=== PATIENT | male | born 1975 | race Two or more races ===

== ENCOUNTER 2017-10-01 11:27 | Inpatient (IN) | payer OTHER ==
[2017-10-01 12:12] VITALS: BMI 20.3
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
[2017-10-01] MEDS ORDERED: guaiFENesin/D-METHORPHAN HB 10 ML UNIT-DOSE CUPS PO PRN (14:29)
[2017-10-01] MEDS ORDERED: MAGNESIUM HYDROX 2400MG/30ML ORAL SUSPENSION 30 ML CUP PO PRN (14:29)
[2017-10-01] MEDS ORDERED: IBUPROFEN 400 MG TABLET (FP) PO PRN (14:29)
[2017-10-01] MEDS ORDERED: MAGNESIUM CITRATE 300 ML BOTTLE PO PRN (14:29)
[2017-10-01] MEDS ORDERED: ACETAMINOPHEN 325 MG TABLET (FP) PO PRN (14:29)
[2017-10-01] MEDS ORDERED: NICOTINE POLACRILEX 2 MG GUM BUC PRN (14:29)
[2017-10-01] MEDS ORDERED: P-EPHED 60MG/TRIPROLIDI 2.5MG TABLET PO PRN (14:29)
[2017-10-01] MEDS ORDERED: MENTHOL/PHENOL 1 EACH UD MM PRN (14:29)
[2017-10-01] MEDS ORDERED: LOPERAMIDE HCL 2 MG CAPSULE PO PRN (14:29)
[2017-10-01] MEDS ORDERED: MAG HYDROX/AL HYDROX/SIMETH 30 ML UNIT-DOSE CUP PO PRN (14:29)
[2017-10-01] MEDS ORDERED: hydrOXYzine PAMOATE 50 MG CAPSULE (FP) PO PRN (14:29)
[2017-10-01] MEDS ORDERED: METHADONE HCL 10 MG TABLET (FOR DETOX USE ONLY) PO ONE ×2 (14:58→23:00)
[2017-10-01] MEDS: SULFAMETHOXAZOLE/TRIMETHOPRIM 800MG/160MG D.S. TABLET PO SCH ×2 (15:48→22:06)
[2017-10-01] MEDS: diazePAM 5 MG TABLET PO PRN ×2 (15:48→20:09)
[2017-10-01] MEDS: BACITRACIN 0.9 GM PACKET TP SCH ×2 (15:48→22:06)
[2017-10-01] MEDS: NICOTINE 21 MG/24 HOURS TOPICAL PATCH TD SCH (16:16)
[2017-10-01] MEDS ORDERED: THIAMINE HCL 100 MG TABLET (FP) PO SCH (22:00)
[2017-10-02] MEDS: diazePAM 5 MG TABLET PO PRN ×4 (02:08→16:46)
--- NOTE | 2017-10-02 07:40 | CONSULT ---
[facility] Psychiatric Consult - Data Date of interview: 10/02/17 Admission source: [facility] Identifying data: This is 42 years old male with psychiatric hospitalization history intoxicated with: Opioids, Copcaine, Methadone and Nicotine Substance Abuse History: Smoking history: Current every day smoker. Have you smoked in the past 12 months: Yes. Aproximately how many cigarettes per day: 15. Cigars Per Day: 0. Hx Chewing Tobacco Use: No. Initiated information on smoking cessation: Yes. 'Breaking Loose' booklet given: 10/01/17 (GIVEN ON UNIT.). - Substance & Tx. History. Hx Alcohol Use: No. Hx Substance Use: Yes. Substance Use Type: Cocaine, Heroin. Hx Substance Use Treatment: Yes ( Detox admission, [facility], 2013.). - Substances Abused. Heroin. Route: Injection. Frequency: Daily. Amount used: 15 bags. Age of first use: 18. Date of Last Use: 10/01/17. Cocaine. Route: Injection. Frequency: Daily. Amount used: $100. Age of first use: 18. Date of Last Use: 10/01/17. street methadone. Route: Oral. Frequency: 1-3 times last 30 days. Amount used: 80-100 MG. Age of first use: 42. Date of Last Use: Medical History: Hisotyr of Abscessis, HepC+ history Psychiatric History: Patient reports history of Depression, unclear psychiatric admission on about 8 years ago at [facility] due to sucidal ideation , denies sucidal attempts history, reports no medications taking prior to admission Physical/Sexual Abuse/Trauma History: Denies Additional Comment: Observation. Detox Unit Care Protocol Psychiatric Findings - Problem List ([place] 1, 2,3) (1) Drug-induced mood disorder Current Visit: Yes Status: Chronic (2) Cocaine dependence, uncomplicated Current Visit: Yes Status: Acute (3) Opioid dependence with withdrawal Current Visit: Yes Status: Acute (4) Nicotine dependence Current Visit: Yes Status: Chronic Qualifiers: Nicotine product type: cigarettes Substance use status: uncomplicated Qualified Code(s): F17.210 - Nicotine dependence, cigarettes, uncomplicated - Initial Treatment Plan Initial Treatment Plan: Observation. Detox Unit Care Protocol
[2017-10-02 09:33] LABS: URINE LEUK ESTERASE Negative (NEGATIVE)
[2017-10-02] MEDS ORDERED: PRENATAL VITAMINS W/ FOLIC ACID TABLET (FP) PO SCH (10:00)
[2017-10-02] MEDS ORDERED: METHADONE HCL 10 MG TABLET (FOR DETOX USE ONLY) PO ONE (10:00)
[2017-10-02 10:25] LABS: MCH 24.5 pg (25.7-33.7); MEAN PLT VOLUME 9.1 fl (7.5-11.1); PLATELET COUNT 256 K/MM3 (134-434); RDW 15.8 % (11.9-15.9); WHITE BLOOD COUNT 7.8 K/mm3 (4.0-10.0)
[2017-10-02 10:51] LABS: ALBUMIN 3.4 g/dl (3.4-5.0); ALK PHOS 88 U/L (45-117); ANION GAP 5 (8-16); BILIRUBIN,TOTAL 0.7 mg/dL (0.2-1.0); CALCIUM 8.7 mg/dL (8.5-10.1); CO2 29 mmol/L (21-32); CREATININE 0.8 mg/dL (0.7-1.3); GLUCOSE,RANDOM 102 mg/dL (74-106); SGOT/AST 33 U/L (15-37); SGPT/ALT 42 U/L (12-78); TOT PROT 7.7 g/dl (6.4-8.2)
[2017-10-02] MEDS: NICOTINE 21 MG/24 HOURS TOPICAL PATCH TD SCH (10:51)
[2017-10-02] MEDS: BACITRACIN 0.9 GM PACKET TP SCH (10:51)
[2017-10-02] MEDS: SULFAMETHOXAZOLE/TRIMETHOPRIM 800MG/160MG D.S. TABLET PO SCH (10:51)
[2017-10-02] MEDS ORDERED: FLU VACCINE QUAD 60 MCG/0.5 ML (MDV 17-18) IM ONE (12:00)
--- NOTE | 2017-10-02 12:06 | PN ---
[facility] COWS - Scale Resting Pulse: 0= DC 80 or Below Sweatin=Flushed/Facial Moisture Restless Observation: 1= Difficult to Sit Still Pupil Size: 0= Normal to Room Light Bone or Joint Aches: 2= Severe Diffuse Aches Runny Nose/ Eye Tearin= Nasal Congestion GI Upset > 30mins: 1= Stomach Cramp Tremor Observation of Outstretched Hands: 2= Slight Tremor Visible Yawning Observation: 2= >3x During Session Anxiety or Irritability: 2=Irritable/Anxious Goose Flesh Skin: 3=Piloerection COWS Score: 16 [facility] Progress Note (SOAP) Subjective: chills sweats agitation anxiety shakes interrupted sleep Objective: 10/02/17 12:05 Vital Signs Temperature 97.9 F 10/02/17 10:00 Pulse Rate 79 10/02/17 10:00 Respiratory Rate 18 10/02/17 10:00 Blood Pressure 143/91 10/02/17 10:00 O2 Sat by Pulse Oximetry (%) Laboratory Tests 10/01/17 10/01/17 10/02/17 14:54 19:00 06:00 WBC 7.8 RBC 4.90 Hgb 12.0 Hct 38.7 MCV 79.0 L MCH 24.5 L MCHC 31.0 L RDW 15.8 Plt Count 256 MPV 9.1 Sodium Potassium Chloride Carbon Dioxide Anion Gap BUN Creatinine Creat Clearance w eGFR Random Glucose Hemoglobin A1c % 5.9 Calcium Total Bilirubin AST ALT Alkaline Phosphatase Total Protein Albumin Ur Leukocyte Esterase Negative 10/02/17 06:00 WBC RBC Hgb Hct MCV MCH MCHC RDW Plt Count MPV Sodium 133 L Potassium 4.3 Chloride 99 Carbon Dioxide 29 Anion Gap 5 L BUN 15 Creatinine 0.8 Creat Clearance w eGFR > 60 Random Glucose 102 Hemoglobin A1c % Calcium 8.7 Total Bilirubin 0.7 AST 33 ALT 42 Alkaline Phosphatase 88 Total Protein 7.7 Albumin 3.4 Ur Leukocyte Esterase aaox3 ambulating no acute distress Assessment: 10/02/17 12:05 withdrawal sx Plan: continue detox increase fluids
--- NOTE | 2017-10-02 12:48 | EKG ---
Test Reason : Blood Pressure : / mmHG Vent. Rate : 071 BPM Atrial Rate : 071 BPM P-R Int : 178 ms QRS Dur : 086 ms QT Int : 386 ms P-R-T Axes : 066 084 082 degrees QTc Int : 419 ms NORMAL SINUS RHYTHM MINIMAL VOLTAGE CRITERIA FOR LVH, MAY BE NORMAL VARIANT ST ELEVATION, CONSIDER EARLY REPOLARIZATION, PERICARDITIS, OR INJURY ABNORMAL ECG NO PREVIOUS ECGS AVAILABLE Confirmed by ALICIA VO, SAIRA ([id number]) on 10/02/2017 12:47:45 PM Referred By: Confirmed By:SAIRA VARGAS MD
--- NOTE | 2017-10-02 12:48 | EKG ---
Test Reason : Blood Pressure : / mmHG Vent. Rate : 082 BPM Atrial Rate : 082 BPM P-R Int : 160 ms QRS Dur : 078 ms QT Int : 378 ms P-R-T Axes : 057 080 076 degrees QTc Int : 441 ms NORMAL SINUS RHYTHM ST ELEVATION, CONSIDER EARLY REPOLARIZATION, PERICARDITIS, OR INJURY ABNORMAL ECG WHEN COMPARED WITH ECG OF 01-OCT-2017 15:52, PREMATURE ATRIAL COMPLEXES ARE NO LONGER PRESENT Confirmed by SAIRA VARGAS MD ([id number]) on 10/02/2017 12:47:51 PM Referred By: Confirmed By:SAIRA VARGAS MD
[2017-10-02 14:53] LABS: HIV 1 & 2 AB NEGATIVE; HIV 1 AGp24 NEGATIVE
[2017-10-02 17:50] VITALS: BP 134/74; PULSE 79; TEMP 96.4
--- NOTE | 2017-10-02 22:59 | PN ---
[facility] Progress Note Note: patient voice to kill self psychiatrist informed transferred to [facility] for psychiatric evaluation
[2017-10-03] MEDS ORDERED: METHADONE HCL 5 MG TABLET (FOR DETOX USE ONLY) PO ONE (10:00)
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
--- NOTE | 2017-10-03 13:43 | DS ---
[facility] Detox Discharge Summary Admission Date: 10/01/17 - History Present History: Cocaine Dependence, Opioid Dependence - Physical Exam Results Vital Signs: Vital Signs Temperature 96.4 F L 10/02/17 17:49 Pulse Rate 79 10/02/17 17:49 Respiratory Rate 18 10/02/17 17:49 Blood Pressure 134/74 10/02/17 17:49 O2 Sat by Pulse Oximetry (%) - Medication Discharge Medications: Ambulatory Orders NK [No Known Home Medication] 10/01/17 - Diagnosis (1) Abscess of right upper extremity Status: Chronic (2) Cocaine dependence, uncomplicated Status: Chronic (3) Opioid dependence with withdrawal Status: Chronic (4) Drug-induced mood disorder Status: Chronic (5) Hepatitis C Status: Chronic Qualifiers: Viral hepatitis chronicity: chronic Hepatic coma status: without hepatic coma Qualified Code(s): B18.2 - Chronic viral hepatitis C (6) Nicotine dependence Status: Chronic Qualifiers: Nicotine product type: cigarettes Substance use status: uncomplicated Qualified Code(s): F17.210 - Nicotine dependence, cigarettes, uncomplicated (7) History of depression Status: Suspected - AMA Did Patient Leave Against Medical Advice: No (sent to psych ED for mental ill tx )
[2017-10-04] MEDS ORDERED: METHADONE HCL 5 MG TABLET (FOR DETOX USE ONLY) PO ONE (10:00)
[2017-10-05] MEDS ORDERED: METHADONE HCL 10 MG TABLET (FOR DETOX USE ONLY) PO ONE (10:00)
[2017-10-06] MEDS ORDERED: METHADONE HCL 5 MG TABLET (FOR DETOX USE ONLY) PO ONE (06:00)
== END 2017-10-02 21:19 | DRG 773 ==
LOC: YASAS 11:27 → Y6N 14:36
PROVIDERS: ADMIT Internal Medicine; ATTEND Internal Medicine
PROC: HZ2ZZZZ Detoxification Services for Substance Abuse Treatment (ICD-10-PCS; principal; 2017-10-01)
DX: F11.23 Opioid dependence with withdrawal (principal); F14.20 Cocaine dependence, uncomplicated; F17.210 Nicotine dependence, cigarettes, uncomplicated; F19.24 Other psychoactive substance dependence with psychoactive substance-induced mood disorder; B18.2 Chronic viral hepatitis C; L02.413 Cutaneous abscess of right upper limb; R45.851 Suicidal ideations
CPT/HCPCS: 36415; 80053; 81003; 83036; 85027; 86593; 87389; 90688; 93005; 93010